=== PATIENT | female | born 1960 | race Two or more races ===

== ENCOUNTER 2024-09-26 16:06 | Emergency (ER) | payer OTHER ==
[~2024-09-26] VITALS: Ht 165.1 cm; Wt 85.7 kg
[~2024-09-26 16:06] MED LIST: COZAAR PO; LOSARTAN POTASS25 MG; SYNTHROID50 MCG; TORADOL10 MG; ULTRACET; ULTRACET PO
[2024-09-26 17:02] LABS: BASO % 0.5 % (0.1-1.2); EOS # 0.19 (0.04-0.54); EOS % 3.0 % (0.7-7.0); LYMPH # 1.92 (1.18-3.74); LYMPH % 30.3 % (19.3-53.1); MEAN PLATELET VOLUME 10.00 fl (9.4-12.4); MONO # 0.51 (0.24-0.82); MONO % 8.0 % (4.7-12.5); NEUT # 3.68 (1.56-6.13); NEUT % 58.0 % (34.0-71.1); RED CELL DISTRIBUTION WIDTH 13.4 % (11.6-14.4)
[2024-09-26 17:09] LABS: URINE APPEARANCE Clear; URINE BILIRRUBIN Negative (NEGATIVE); URINE BLOOD Negative; URINE COLOR Yellow; URINE GLUCOSE Negative (NEGATIVE); URINE KETONE Trace (NEGATIVE); URINE LEUKOCYTE Small; URINE NITRATE Negative; URINE PROTEIN Negative (NEGATIVE); URINE UROBILINOGEN 0.2 E.U./dl
[2024-09-26 17:13] LABS: URINE BACTERIA 3706.4 uL (0.0-1933); URINE EPITHELIAL CELLS 40.6 uL (0.0-38.8); URINE RBC 25.2 uL (0.0-20.8); URINE WBC 229.8 uL (0.0-23.2)
[2024-09-26 17:17] LABS: URINE CAST 0.87 uL (0.0-1.40)
[2024-09-26 17:20] LABS: COVID-19 AG NEGATIVE (NEGATIVE)
[2024-09-26 17:22] LABS: GLUCOSE FASTING 94.0 mg/dL (65-100); OSMOLALITY SERUM 288.0 MOSM/KG (275-295)
[2024-09-26 17:27] LABS: ALT/SGPT 20.0 U/L (12-78); AST/SGOT 16.0 U/L (15-37); BILIRUBIN TOTAL 0.23 mg/dL (0.3-1.2); BUN CREA RATIO 31.0 (7.0-25.0); CREATININE SERUM 0.58 mg/dL (0.55-1.02); GFR 104.33; GLOBULINA 3.4 G/DL (2.4-3.5)
[2024-09-26] MEDS ORDERED: BACTRIM DS TAB1 EACH PO (17:33)
[2024-09-26] MEDS ORDERED: PEPCID AC20 MG PO (17:33)
[2024-09-26 17:34] LABS: TYPE CELLS RENAL TUBULAR
== END 2024-09-26 17:44 | disposition home or self-care (01) ==
LOC: ER 16:06
PROVIDERS: General Practice
DX: R42 Dizziness and giddiness (principal); Z20.822 Contact with and (suspected) exposure to COVID-19; I10 Essential (primary) hypertension; Z88.5 Allergy status to narcotic agent